=== PATIENT | female | born 1965 | race Caucasian/White ===

== ENCOUNTER → 2016-11-25 | Outpatient (CLI) | payer OTHER ==
[~2016-11-25] MED LIST: HUMALOG100 UNIT/1 SC; HUMALOG100 UNIT/1 SQ; METOPROLOL SUCC25 MG PO; NEURONTIN 300300 MG PO; TIZANIDINE HCL4 MG PO; TOPAMAX50 MG PO; TRAMADOL HCL50 MG PO
== END ==
LOC: KOH-I 12:18
DX: S29.9XXA Unspecified injury of thorax, initial encounter (principal); F41.9 Anxiety disorder, unspecified; F43.9 Reaction to severe stress, unspecified; E11.9 Type 2 diabetes mellitus without complications; M54.12 Radiculopathy, cervical region; J98.4 Other disorders of lung
CPT/HCPCS: 71020

== ENCOUNTER → 2016-11-28 | Outpatient (CLI) | payer OTHER | LOC: KOH-I 11:18 | DX: J98.11 Atelectasis (principal); R93.8 Abnormal findings on diagnostic imaging of other specified body structures; R91.8 Other nonspecific abnormal finding of lung field | CPT/HCPCS: 71020 ==

== ENCOUNTER 2021-02-28 00:07 | Inpatient (IN) | payer OTHER ==
[~2021-02-28] VITALS: Ht 160 cm; Wt 61.2 kg
[~2021-02-28 00:07] MED LIST changes: +ADMELOG SO100 UNIT/1 SQ; +ADMELOG100 UNIT/1 SC; +BACTRIM DS TAB1 EACH PO; +BASAGLAR K100 UNIT/1 SC; +CLARITIN 10MG T10 MG PO; +ECOTRIN81 MG PO; +FERROUS SULFAT325 MG PO; +FLEXERIL 10 MG10 MG PO; +GLUCOSE4 GM PO; +HUMALOG 10100 UNITS/ SC; +INVANZ 1 GM VIAL1 GM IM; +IRON325 M1 PO; +KEFLEX CAP 500500 MG PO; +LANTUS INS100 UTS/M1 SC; +LORTAB 7.5-3251 EACH PO; +NAPROSYN500 MG PO; +NEURONTIN600 MG PO; +NORCO 5-325 TA1 EACH PO; +NORCO 7.5-3251 EACH PO; +OMNICEF 300 MG300 MG PO; +PERCOCET 5-3251 EACH PO; +PROTONIX 40 MG40 M1 PO; +PROTONIX40 MG PO; +PROVENTIL HFA6.7 GM INH; +ROBITUSSIN AC480 ML PO; +TAMIFLU75 MG PO; +TORADOL 10 MG T10 MG PO; +VALACYCLOVIR500 MG PO; +VITAMIN D31250 MCG PO; +ZOFRAN ODT 4 MG4 MG SL
[2021-02-28 02:40] LABS: HEMOGLOBIN 12.6 gm/dl (12.3-15.3); RED BLOOD COUNT 4.35 M/UL (4.00-5.10)
[2021-02-28 02:46] LABS: WHITE BLOOD COUNT 1.2 K/UL (4.5-11.0)
[2021-02-28 02:56] LABS: BUN/CREATININE RATIO 24 (0-10)
[2021-02-28] MEDS ORDERED: DRISDOL1250 MCG PO (10:52)
[2021-02-28] MEDS ORDERED: IBU800 MG PO (10:53)
[2021-02-28] MEDS ORDERED: LOPERAMIDE2 MG PO (10:54)
[2021-02-28] MEDS ORDERED: ONDANSETRON HCL8 MG PO (10:55)
[2021-02-28] MEDS ORDERED: LANTUS SOL100 UNIT/1 INJ (10:56)
[2021-02-28] MEDS ORDERED: HUMALOG100 UNIT/3 INJ (10:57)
[2021-02-28] MEDS ORDERED: DAILY VALUE1 EACH PO (11:00)
[2021-03-01 03:40] LABS: HEMOGLOBIN 10.3 gm/dl (12.3-15.3); RED BLOOD COUNT 3.54 M/UL (4.00-5.10)
[2021-03-01 03:41] LABS: WHITE BLOOD COUNT 0.9 K/UL (4.5-11.0)
[2021-03-01 04:01] LABS: BUN/CREATININE RATIO 20 (0-10)
[2021-03-02 04:11] LABS: BUN/CREATININE RATIO 13 (0-10)
[2021-03-02 09:15] LABS: HEMOGLOBIN 10.4 gm/dl (12.3-15.3); RED BLOOD COUNT 3.61 M/UL (4.00-5.10)
[2021-03-02 09:21] LABS: WHITE BLOOD COUNT 3.1 K/UL (4.5-11.0)
[2021-03-03 04:48] LABS: HEMOGLOBIN 10.5 gm/dl (12.3-15.3); RED BLOOD COUNT 3.62 M/UL (4.00-5.10)
[2021-03-03 05:04] LABS: WHITE BLOOD COUNT 1.3 K/UL (4.5-11.0)
[2021-03-03 05:12] LABS: BUN/CREATININE RATIO 12 (0-10)
[2021-03-04 03:14] LABS: HEMOGLOBIN 10.3 gm/dl (12.3-15.3); RED BLOOD COUNT 3.5 M/UL (4.00-5.10)
[2021-03-04 03:18] LABS: WHITE BLOOD COUNT 1.2 K/UL (4.5-11.0)
[2021-03-04 03:41] LABS: BUN/CREATININE RATIO 19 (0-10)
[2021-03-05 04:48] LABS: HEMOGLOBIN 10.7 gm/dl (12.3-15.3); RED BLOOD COUNT 3.63 M/UL (4.00-5.10)
[2021-03-05 05:00] LABS: WHITE BLOOD COUNT 1.1 K/UL (4.5-11.0)
[2021-03-05 05:13] LABS: BUN/CREATININE RATIO 17 (0-10)
[2021-03-06 03:50] LABS: HEMOGLOBIN 10.7 gm/dl (12.3-15.3); RED BLOOD COUNT 3.68 M/UL (4.00-5.10)
[2021-03-06 04:15] LABS: BUN/CREATININE RATIO 20 (0-10)
[2021-03-06 04:21] LABS: WHITE BLOOD COUNT 3.6 K/UL (4.5-11.0)
[2021-03-06 17:02] LABS: BUN/CREATININE RATIO 19 (0-10)
[2021-03-07 05:31] LABS: HEMOGLOBIN 10.5 gm/dl (12.3-15.3); RED BLOOD COUNT 3.56 M/UL (4.00-5.10)
[2021-03-07 05:49] LABS: BUN/CREATININE RATIO 18 (0-10)
[2021-03-08 13:34] LABS: HEMOGLOBIN 10.9 gm/dl (12.3-15.3); RED BLOOD COUNT 3.65 M/UL (4.00-5.10)
[2021-03-08 14:11] LABS: BUN/CREATININE RATIO 24 (0-10)
[2021-03-09 04:01] LABS: HEMOGLOBIN 10.9 gm/dl (12.3-15.3); RED BLOOD COUNT 3.67 M/UL (4.00-5.10); WHITE BLOOD COUNT 10.2 K/UL (4.5-11.0)
[2021-03-09 04:23] LABS: BUN/CREATININE RATIO 26 (0-10)
[2021-03-09] MEDS ORDERED: CIPRO250 MG PO (10:16)
[2021-03-09 14:29] LABS: WHITE BLOOD COUNT 11.9 K/UL (4.5-11.0)
== END 2021-03-09 13:36 | disposition home or self-care (01) | DRG 808 ==
LOC: ER1 00:07 → CDU 05:10 → PROG CARE 05:10
PROVIDERS: Internal Medicine; Internal Medicine Nephrology; Physician Assistant; Registered Nurse; ADMIT Internal Medicine
PROC: 8E0ZXY6 Isolation (ICD-10-PCS; principal; 2021-02-28)
PROC: 3E0333Z Introduction of Anti-inflammatory into Peripheral Vein, Percutaneous Approach (ICD-10-PCS; 2021-02-28)
PROC: XW033E5 Introduction of Remdesivir Anti-infective into Peripheral Vein, Percutaneous Approach, New Technology Group 5 (ICD-10-PCS; 2021-02-28)
DX: D70.1 Agranulocytosis secondary to cancer chemotherapy (principal); U07.1 COVID-19; N17.9 Acute kidney failure, unspecified; C78.00 Secondary malignant neoplasm of unspecified lung; C78.7 Secondary malignant neoplasm of liver and intrahepatic bile duct; C77.8 Secondary and unspecified malignant neoplasm of lymph nodes of multiple regions; E87.1 Hypo-osmolality and hyponatremia; J98.11 Atelectasis; E87.2 Acidosis; C78.80 Secondary malignant neoplasm of unspecified digestive organ; N30.90 Cystitis, unspecified without hematuria; E87.6 Hypokalemia; B96.20 Unspecified Escherichia coli [E. coli] as the cause of diseases classified elsewhere; E11.9 Type 2 diabetes mellitus without complications; E86.0 Dehydration; M54.9 Dorsalgia, unspecified; D61.810 Antineoplastic chemotherapy induced pancytopenia; T45.1X5A Adverse effect of antineoplastic and immunosuppressive drugs, initial encounter; Z92.21 Personal history of antineoplastic chemotherapy; Z93.3 Colostomy status; Z90.710 Acquired absence of both cervix and uterus; Z98.890 Other specified postprocedural states; Z88.2 Allergy status to sulfonamides; Z88.8 Allergy status to other drugs, medicaments and biological substances; Z80.1 Family history of malignant neoplasm of trachea, bronchus and lung; Z83.3 Family history of diabetes mellitus; Z87.440 Personal history of urinary (tract) infections; Z86.14 Personal history of Methicillin resistant Staphylococcus aureus infection; Z88.0 Allergy status to penicillin; Z79.899 Other long term (current) drug therapy; Z79.4 Long term (current) use of insulin
CPT/HCPCS: 36415; 36556; 70450; 71045; 71260; 74018; 80048; 80053; 80202; 81001; 82140; 82550; 82553; 82570; 82962; 83605; 83690; 83874; 83880; 84132; 84133; 84156; 84300; 84484; 85007; 85025; 85027; 87040; 87086; 89050; 90686; 93005; 94760; 96374; 96376; 99285; J0692; J1100; J1442; J1650; J2270; J2405; J3370; J7030; J7070; P9047; Q9967; U0002

== ENCOUNTER 2021-03-24 13:17 | Emergency (ER) | payer OTHER ==
[~2021-03-24 13:17] MED LIST changes: +CIPRO250 MG PO; +DAILY VALUE1 EACH PO; +DRISDOL1250 MCG PO; +HUMALOG100 UNIT/3 INJ; +IBU800 MG PO; +LANTUS SOL100 UNIT/1 INJ; +LOPERAMIDE2 MG PO; +ONDANSETRON HCL8 MG PO
[2021-03-24] MEDS ORDERED: NAPROSYN500 MG PO (15:42)
== END 2021-03-24 17:00 | disposition home or self-care (01) ==
LOC: ER1 13:17
DX: S92.331A Displaced fracture of third metatarsal bone, right foot, initial encounter for closed fracture (principal); S92.341A Displaced fracture of fourth metatarsal bone, right foot, initial encounter for closed fracture; S92.351A Displaced fracture of fifth metatarsal bone, right foot, initial encounter for closed fracture; Z88.0 Allergy status to penicillin; Z88.1 Allergy status to other antibiotic agents; W19.XXXA Unspecified fall, initial encounter; Y92.009 Unspecified place in unspecified non-institutional (private) residence as the place of occurrence of the external cause
CPT/HCPCS: 73600; 73630; 99283

== ENCOUNTER → 2021-04-15 | Outpatient (CLI) | payer OTHER | LOC: KOH-I 10:45 | DX: S92.331A Displaced fracture of third metatarsal bone, right foot, initial encounter for closed fracture (principal); S92.341A Displaced fracture of fourth metatarsal bone, right foot, initial encounter for closed fracture; S92.351A Displaced fracture of fifth metatarsal bone, right foot, initial encounter for closed fracture | CPT/HCPCS: 73630 ==

== ENCOUNTER → 2021-05-18 | Outpatient (CLI) | payer OTHER | LOC: KOH-I 09:24 | DX: S92.351D Displaced fracture of fifth metatarsal bone, right foot, subsequent encounter for fracture with routine healing (principal) | CPT/HCPCS: 73630 ==

== ENCOUNTER → 2021-05-31 | Outpatient (CLI) | payer OTHER | LOC: KOH-I 05-26 12:00 | DX: R07.81 Pleurodynia (principal); C20 Malignant neoplasm of rectum; R30.0 Dysuria; R32 Unspecified urinary incontinence; S92.331D Displaced fracture of third metatarsal bone, right foot, subsequent encounter for fracture with routine healing; S92.341D Displaced fracture of fourth metatarsal bone, right foot, subsequent encounter for fracture with routine healing; S92.351A Displaced fracture of fifth metatarsal bone, right foot, initial encounter for closed fracture | CPT/HCPCS: 71045; 71101; 73700 ==

== ENCOUNTER → 2021-06-03 | Outpatient (CLI) | payer OTHER | LOC: EXRD 11:00 → CT 14:00 | DX: C20 Malignant neoplasm of rectum (principal); R30.0 Dysuria; R32 Unspecified urinary incontinence | CPT/HCPCS: 71260; Q9967 ==

== ENCOUNTER → 2021-07-12 | Outpatient (CLI) | payer OTHER | LOC: KOH-I 13:12 | DX: S92.311D Displaced fracture of first metatarsal bone, right foot, subsequent encounter for fracture with routine healing (principal); S92.321D Displaced fracture of second metatarsal bone, right foot, subsequent encounter for fracture with routine healing; S92.331D Displaced fracture of third metatarsal bone, right foot, subsequent encounter for fracture with routine healing; S92.341D Displaced fracture of fourth metatarsal bone, right foot, subsequent encounter for fracture with routine healing; S92.351D Displaced fracture of fifth metatarsal bone, right foot, subsequent encounter for fracture with routine healing | CPT/HCPCS: 73610; 73630 ==

== ENCOUNTER → 2021-09-09 | Outpatient (CLI) | payer OTHER | LOC: KOH-I 11:37 | DX: S82.451D Displaced comminuted fracture of shaft of right fibula, subsequent encounter for closed fracture with routine healing (principal); S92.311D Displaced fracture of first metatarsal bone, right foot, subsequent encounter for fracture with routine healing; S92.321D Displaced fracture of second metatarsal bone, right foot, subsequent encounter for fracture with routine healing | CPT/HCPCS: 73610; 73630 ==

== ENCOUNTER 2021-11-17 01:24 | Emergency (ER) | payer OTHER ==
[2021-11-17] MEDS ORDERED: CEPHALEXIN500 M1 PO (02:16)
[2021-11-17] MEDS ORDERED: MONODOX100 MG PO (02:16)
== END 2021-11-17 03:03 | disposition home or self-care (01) ==
LOC: ER1 01:24
DX: S92.512A Displaced fracture of proximal phalanx of left lesser toe(s), initial encounter for closed fracture (principal); L03.90 Cellulitis, unspecified; L03.116 Cellulitis of left lower limb; Z85.038 Personal history of other malignant neoplasm of large intestine; Z88.0 Allergy status to penicillin; Z88.8 Allergy status to other drugs, medicaments and biological substances; W22.8XXA Striking against or struck by other objects, initial encounter; Y92.009 Unspecified place in unspecified non-institutional (private) residence as the place of occurrence of the external cause
CPT/HCPCS: 73630; 96374; 99283; J0696